=== PATIENT | male | born 1970 | race Caucasian/White ===

== ENCOUNTER 2018-08-22 15:35 | Emergency (ER) | payer OTHER ==
[2018-08-22 16:25] LABS: BASOPHILS % (AUTO) 1.3 % (0.0-5.0); EOSINOPHILS % (AUTO) 3.4 % (0.0-8.0); HEMATOCRIT 36.3 % (42-54); LYMPHOCYTES % (AUTO) 22.8 % (21.0-51.0); MEAN CORPUSCULAR HEMOGLOBIN 33.5 pg (27.0-33.0); MEAN CORPUSCULAR HGB CONC 34.6 g/dL (32.0-36.0); MONOCYTES % (AUTO) 6.6 % (3.0-13.0); NEUTROPHILS % (AUTO) 65.9 % (40.0-77.0); NUCLEATED RED BLOOD CELLS 0.1 % (0.0-0.19); PLATELET COUNT (AUTO) 278 K/uL (130-400); RED BLOOD CELL COUNT(AUTO) 3.75 MIL/uL (4.50-6.20); RED CELL DISTRIBUTION WIDTH 15.4 % (11.0-15.5); WHITE BLOOD COUNT (AUTO) 7.6 K/uL (4.8-10.8)
[2018-08-22] MEDS ORDERED: DIAZEPAM 5 MG TABLET ONE (16:34)
[2018-08-22 16:42] LABS: ALANINE AMINOTRANSFERASE 147 U/L (12-78); ALBUMIN 3.7 g/dL (3.5-5.0); ALCOHOL, BLOOD < 3 mg/dL (0-10); ASPARTATE AMINOTRANSFERASE 220 U/L (10-37); BILIRUBIN,DIRECT 0.4 mg/dL (0.0-0.3); BILIRUBIN,TOTAL 1.1 mg/dL (0.2-1.0); CARBON DIOXIDE 31 mmol/L (21-32); CHLORIDE 95 mmol/L (101-111); CREATINE KINASE, TOTAL 117 U/L (21-232); GLOMERULAR FILTR. RATE CALC 84 mL/min (>60); GLUCOSE,RANDOM 94 mg/dL (70-105); SODIUM SERUM 137 mmol/L (136-145); TOTAL PROTEIN, SERUM 6.5 g/dL (6.0-8.3); UREA NITROGEN, BLOOD 10 mg/dL (7-18)
[2018-08-22 16:53] LABS: POTASSIUM 2.2 mmol/L (3.5-5.1)
[2018-08-22 17:15] LABS: AMPHET/METH SCREEN,URINE NEGATIVE (NEGATIVE); BARBITURATE SCREEN, URINE NEGATIVE (NEGATIVE); BENZODIAZEPINES SCREEN,URINE POSITIVE (NEGATIVE); CANNABINOID SCREEN,URINE NEGATIVE (NEGATIVE); COCAINE SCREEN,URINE NEGATIVE (NEGATIVE); OPIATE SCREEN,URINE NEGATIVE (NEGATIVE); PHENCYCLIDINE SCREEN,URINE NEGATIVE (NEGATIVE)
[2018-08-22] MEDS ORDERED: MAGNESIUM 2GM PREMIX 50ML 50 ML IV ONE (17:21)
== END 2018-08-22 19:11 | disposition left against medical advice (07) ==
LOC: EDH 15:35
DX: R53.1 Weakness (principal); E87.6 Hypokalemia; R94.31 Abnormal electrocardiogram [ECG] [EKG]; Z72.0 Tobacco use
CPT/HCPCS: 36415; 80048; 80076; 80305; 82550; 83735; 85025; 93005; 96365; 99284; G0480; J3475

== ENCOUNTER 2018-11-07 16:49 | Emergency (ER) | payer OTHER ==
[2018-11-07] MEDS ORDERED: DIAZEPAM 5 MG TABLET ONE (17:15)
== END 2018-11-07 17:20 | disposition home or self-care (01) ==
LOC: EDH 16:49
DX: F41.9 Anxiety disorder, unspecified (principal); F43.10 Post-traumatic stress disorder, unspecified; Z98.890 Other specified postprocedural states; Z72.0 Tobacco use

== ENCOUNTER 2020-07-25 13:47 | Emergency (ER) | payer OTHER ==
[2020-07-25 14:31] LABS: BASOPHILS % (AUTO) 0.3 % (0.0-5.0); EOSINOPHILS % (AUTO) 0.8 % (0.0-8.0); HEMATOCRIT 24.1 % (42-54); LYMPHOCYTES % (AUTO) 14.8 % (21.0-51.0); MEAN CORPUSCULAR HEMOGLOBIN 36.7 pg (27.0-33.0); MEAN CORPUSCULAR HGB CONC 36.1 g/dL (32.0-36.0); MEAN CORPUSCULAR VOLUME 101.7 fL (79-99); NEUTROPHILS % (AUTO) 65.1 % (40.0-77.0); NUCLEATED RED BLOOD CELLS 0.1 % (0.0-0.19); PLATELET COUNT (AUTO) 116 K/uL (130-400); RED BLOOD CELL COUNT(AUTO) 2.37 MIL/uL (4.50-6.20); RED CELL DISTRIBUTION WIDTH 16.4 % (11.0-15.5); WHITE BLOOD COUNT (AUTO) 29.5 K/uL (4.8-10.8)
[2020-07-25 14:33] LABS: APPEARANCE,URINE CLEAR (CLEAR); BILIRUBIN,URINE MODERATE (NEGATIVE); COLOR,URINE YELLOW (YELLOW); GLUCOSE, URINE (UA) NEGATIVE (NEGATIVE); KETONES,URINE NEGATIVE (NEGATIVE); LEUKOCYTE ESTERASE ,URINE NEGATIVE (NEGATIVE); NITRATE,URINE NEGATIVE (NEGATIVE); OCCULT BLOOD,URINE NEGATIVE (NEGATIVE); PROTEIN,URINE NEGATIVE (NEGATIVE)
[2020-07-25 14:43] LABS: CREATININE 1.2 mg/dL (0.5-1.5); POTASSIUM 4.1 mmol/L (3.5-5.1)
[2020-07-25 14:46] LABS: BILIRUBIN,TOTAL 9.8 mg/dL (0.2-1.0); TOTAL PROTEIN, SERUM 4.9 g/dL (6.0-8.3)
[2020-07-25] MEDS ORDERED: DICYCLOMINE HCL 10 MG/ML 2ML AMP IM ONE (14:55)
[2020-07-25] MEDS ORDERED: SODIUM CHLORIDE 0.9% 50 ML IV ONE ×2 (14:56→15:56)
[2020-07-25] MEDS ORDERED: IOHEXOL 350 MG/ML 100ML INFUS..BTL IV ONE (15:09)
[2020-07-25 15:13] LABS: BACTERIA,URINE Few /HPF (None Seen); MUCUS,URINE Few LPF (None Seen); SQUAMOUS EPITHELIAL CELL,UR Few /HPF (0-2)
[2020-07-25] MEDS ORDERED: CEFTRIAXONE SODIUM 1 GM ONE (15:55)
[2020-07-25] MEDS ORDERED: SODIUM CHLORIDE 0.9% 1000ML 1,000 ML IV SCH (16:45)
[2020-07-25] MEDS ORDERED: HYDROMORPHONE HCL 0.5 MG/0.5 ML ML IVP PRN (16:45)
[2020-07-25] MEDS ORDERED: FOLIC ACID 5 MG/ML 10 ML VIAL IV SCH (16:45)
[2020-07-25] MEDS ORDERED: THIAMINE HCL 100 MG/ML 2ML VIAL IVP SCH (16:45)
[2020-07-25 16:55] LABS: INR 1.56 (0.85-1.15); PROTHROMBIN TIME 16.3 SEC (9.6-11.6)
[2020-07-25 16:56] LABS: PARTIAL THROMBOPLASTIN TIME 37.8 SEC (26.3-35.5)
[2020-07-25 18:33] LABS: AMPHET/METH SCREEN,URINE NEGATIVE (NEGATIVE); BARBITURATE SCREEN, URINE NEGATIVE (NEGATIVE); BENZODIAZEPINES SCREEN,URINE NEGATIVE (NEGATIVE); CANNABINOID SCREEN,URINE NEGATIVE (NEGATIVE); COCAINE SCREEN,URINE NEGATIVE (NEGATIVE); OPIATE SCREEN,URINE NEGATIVE (NEGATIVE); PHENCYCLIDINE SCREEN,URINE NEGATIVE (NEGATIVE)
[2020-07-25] MEDS ORDERED: ZOSYN 3.375GM+NS 50ML 50 ML IV SCH (20:00)
[2020-07-25] MEDS ORDERED: LACTULOSE 20 GM/30 ML UDCUP PO SCH (20:00)
[2020-07-26] MEDS ORDERED: THIAMINE HCL 100 MG/ML 2ML VIAL IVP SCH (09:00)
[2020-07-26] MEDS ORDERED: FOLIC ACID 5 MG/ML 10 ML VIAL IV SCH (09:00)
== END 2020-07-25 17:28 | disposition left against medical advice (07) ==
LOC: EDH 13:47
DX: R60.1 Generalized edema (principal); K52.9 Noninfective gastroenteritis and colitis, unspecified; D72.829 Elevated white blood cell count, unspecified; E87.1 Hypo-osmolality and hyponatremia; Z90.49 Acquired absence of other specified parts of digestive tract; Z72.0 Tobacco use
CPT/HCPCS: 36415; 71045; 74177; 80053; 80305; 81001; 82140; 82150; 82550; 83605; 83690; 84145; 84484; 85025; 85384; 85610; 85730; 86140; 87040 ×2; 93005; 96365; 96367; 96372; 99291; J0500; J0696; Q9967

== ENCOUNTER 2020-07-28 10:06 | Inpatient (IN) | payer OTHER ==
[~2020-07-28] VITALS: Ht 185.4 cm; Wt 73.9 kg
[2020-07-28 10:27] LABS: BASOPHILS % (AUTO) 0.3 % (0.0-5.0); EOSINOPHILS % (AUTO) 0.4 % (0.0-8.0); HEMATOCRIT 21.8 % (42-54); LYMPHOCYTES % (AUTO) 12.4 % (21.0-51.0); MEAN CORPUSCULAR HEMOGLOBIN 36.8 pg (27.0-33.0); MEAN CORPUSCULAR HGB CONC 35.8 g/dL (32.0-36.0); MEAN CORPUSCULAR VOLUME 102.8 fL (79-99); MONOCYTES % (AUTO) 10.8 % (3.0-13.0); NEUTROPHILS % (AUTO) 72.7 % (40.0-77.0); PLATELET COUNT (AUTO) 213 K/uL (130-400); RED BLOOD CELL COUNT(AUTO) 2.12 MIL/uL (4.50-6.20); WHITE BLOOD COUNT (AUTO) 27.8 K/uL (4.8-10.8)
[2020-07-28 10:28] LABS: NUCLEATED RED BLOOD CELLS 0.1 % (0.0-0.19)
[2020-07-28 10:37] LABS: CREATININE 1.2 mg/dL (0.5-1.5); POTASSIUM 3.8 mmol/L (3.5-5.1)
[2020-07-28 10:42] LABS: ALBUMIN 1.9 g/dL (3.5-5.0); BILIRUBIN,TOTAL 8.4 mg/dL (0.2-1.0); INR 1.6 (0.85-1.15); PROTHROMBIN TIME 16.7 SEC (9.6-11.6); TOTAL PROTEIN, SERUM 4.6 g/dL (6.0-8.3)
[2020-07-28 10:43] LABS: PARTIAL THROMBOPLASTIN TIME 40.4 SEC (26.3-35.5)
[2020-07-28] MEDS ORDERED: DICYCLOMINE 20MG (10MG/ML) AMP IM ONE (12:04)
[2020-07-28] MEDS: CEFTRIAXONE 1G VIAL IVP SCH (16:15)
[2020-07-28] MEDS ORDERED: HYDRALAZINE 20MG/ML VIAL IV PRN (16:30)
[2020-07-28] MEDS ORDERED: ALBUTEROL 0.083% 2.5 MG/3 ML INH IH PRN (16:30)
[2020-07-28] MEDS ORDERED: ONDANSETRON 4MG INJ IVP PRN (16:30)
[2020-07-28] MEDS: LACTULOSE 20 GM/30 ML UDCUP PO SCH (17:00)
[2020-07-28 17:12] LABS: BILIRUBIN,DIRECT 5.9 mg/dL (0.0-0.3); BILIRUBIN,TOTAL 9.1 mg/dL (0.2-1.0)
[2020-07-28 17:13] LABS: ALCOHOL, BLOOD < 3 mg/dL (0-10)
[2020-07-28] MEDS ORDERED: 0.9%NACL 50ML 50 ML IV ONE (17:15)
[2020-07-28] MEDS ORDERED: CEFTRIAXONE 1G VIAL ONE (17:15)
[2020-07-28 17:20] LABS: AMMONIA 14 umol/L (11-32)
[2020-07-28] MEDS ORDERED: PHARMACY COMMUNICATION MISC PRN (17:45)
[2020-07-28] MEDS ORDERED: THIAMINE HCL 100 MG, FOLIC ACID 1 MG, M.V.I. IV [ADULT] 10 ML in 0.9%NACL 1000ML 1,000 ML IV ONE (17:45)
[2020-07-28] MEDS: FAMOTIDINE 20MG VIAL IV SCH (21:00)
[2020-07-28] MEDS ORDERED: LACTULOSE 20 GM/30 ML UDCUP ONE (22:53)
[2020-07-28] MEDS ORDERED: FAMOTIDINE 20MG VIAL IV ONE (22:54)
[2020-07-28 23:15] VITALS: BP 135/77
[2020-07-29] VITALS (12 sets, daily range): BP systolic 94–150; BP diastolic 50–79
[2020-07-29] MEDS: LACTULOSE 20 GM/30 ML UDCUP PO SCH ×4 (00:19→19:24)
[2020-07-29] MEDS ORDERED: LOSA50TA64 PO (01:10)
[2020-07-29] MEDS ORDERED: ALBUTERAL INHALER PO (01:10)
[2020-07-29] MEDS ORDERED: FURO40TA7 PO (01:10)
[2020-07-29 05:16] LABS: BASOPHILS % (AUTO) 0.3 % (0.0-5.0); EOSINOPHILS % (AUTO) 0.9 % (0.0-8.0); HEMATOCRIT 22.1 % (42-54); LYMPHOCYTES % (AUTO) 13.8 % (21.0-51.0); MEAN CORPUSCULAR HEMOGLOBIN 35.8 pg (27.0-33.0); MEAN CORPUSCULAR HGB CONC 34.8 g/dL (32.0-36.0); MEAN CORPUSCULAR VOLUME 102.8 fL (79-99); MONOCYTES % (AUTO) 13.1 % (3.0-13.0); NEUTROPHILS % (AUTO) 68.7 % (40.0-77.0); NUCLEATED RED BLOOD CELLS 0.2 % (0.0-0.19); PLATELET COUNT (AUTO) 125 K/uL (130-400); RED BLOOD CELL COUNT(AUTO) 2.15 MIL/uL (4.50-6.20); RED CELL DISTRIBUTION WIDTH 15.9 % (11.0-15.5); WHITE BLOOD COUNT (AUTO) 29.4 K/uL (4.8-10.8)
[2020-07-29 05:35] LABS: ALBUMIN 1.8 g/dL (3.5-5.0); BILIRUBIN,TOTAL 9.3 mg/dL (0.2-1.0); CREATININE 0.8 mg/dL (0.5-1.5); POTASSIUM 4.2 mmol/L (3.5-5.1); TOTAL PROTEIN, SERUM 4.5 g/dL (6.0-8.3)
[2020-07-29] MEDS: FUROSEMIDE 40 MG TABLET PO SCH (12:36)
[2020-07-29] MEDS: LOSARTAN 50 MG TABLET PO SCH (12:36)
[2020-07-29] MEDS: CEFTRIAXONE 1G VIAL IVP SCH (12:54)
[2020-07-29] MEDS: ALBUMIN (HUMAN) 25% 200 ML IV SCH ×2 (12:56→13:48)
[2020-07-29] MEDS: FAMOTIDINE 20MG VIAL IV SCH ×2 (12:56→20:20)
[2020-07-29 14:06] LABS: BF LYMPHOCYTE 8 %; BF MESOTHELIAL 17 %; BF MONOCYTE 12 %
[2020-07-29 14:08] LABS: APPEARANCE BODY FLUID CLEAR (CLEAR); COLOR,BODY FLUID YELLOW (LT YELLOW); SPECIMENTYPE,BODY FLUID ASCITES; TOTAL VOLUME,BODY FLUID 9000 mL
[2020-07-29 14:09] LABS: BODY FLUID RBC 23 /cu. mm.; BODY FLUID WBC 83 /cu. mm.
[2020-07-29 21:28] LABS: INR 1.64 (0.85-1.15); PROTHROMBIN TIME 17.1 SEC (9.6-11.6)
[2020-07-29 21:29] LABS: PARTIAL THROMBOPLASTIN TIME 51.2 SEC (26.3-35.5)
[2020-07-30 01:28] LABS: AMPHET/METH SCREEN,URINE NEGATIVE (NEGATIVE); BARBITURATE SCREEN, URINE NEGATIVE (NEGATIVE); BENZODIAZEPINES SCREEN,URINE NEGATIVE (NEGATIVE); CANNABINOID SCREEN,URINE NEGATIVE (NEGATIVE); COCAINE SCREEN,URINE NEGATIVE (NEGATIVE); OPIATE SCREEN,URINE NEGATIVE (NEGATIVE); PHENCYCLIDINE SCREEN,URINE NEGATIVE (NEGATIVE); SODIUM,URINE RANDOM < 13 mmol/l (40-220)
[2020-07-30 05:06] VITALS: BP 114/50
[2020-07-30 06:13] LABS: BASOPHILS % (AUTO) 0.2 % (0.0-5.0); EOSINOPHILS % (AUTO) 1.2 % (0.0-8.0); LYMPHOCYTES % (AUTO) 15.9 % (21.0-51.0); MEAN CORPUSCULAR HEMOGLOBIN 36.7 pg (27.0-33.0); MEAN CORPUSCULAR HGB CONC 36.1 g/dL (32.0-36.0); MEAN CORPUSCULAR VOLUME 101.6 fL (79-99); MONOCYTES % (AUTO) 11.6 % (3.0-13.0); NUCLEATED RED BLOOD CELLS 0.1 % (0.0-0.19); PLATELET COUNT (AUTO) 171 K/uL (130-400); RED BLOOD CELL COUNT(AUTO) 1.88 MIL/uL (4.50-6.20); RED CELL DISTRIBUTION WIDTH 15.9 % (11.0-15.5); WHITE BLOOD COUNT (AUTO) 28.9 K/uL (4.8-10.8)
[2020-07-30 06:15] LABS: INR 1.54 (0.85-1.15); PROTHROMBIN TIME 16.1 SEC (9.6-11.6)
[2020-07-30 06:16] LABS: HEMATOCRIT 19.1 % (42-54)
[2020-07-30 06:22] LABS: ALBUMIN 2.3 g/dL (3.5-5.0); BILIRUBIN,TOTAL 6.6 mg/dL (0.2-1.0); TOTAL PROTEIN, SERUM 4.5 g/dL (6.0-8.3)
[2020-07-30] MEDS ORDERED: IOHEXOL-350 50ML VIAL IV ONE (06:42)
[2020-07-30] MEDS ORDERED: POTASSIUM CHLORIDE 20MEQ/100ML 100 ML IV PRN ×2 (07:45→19:15)
[2020-07-30] MEDS ORDERED: LIDOCAINE HCL-MPF 1% 2ML VIAL IV PRN ×2 (07:45→19:15)
[2020-07-30] MEDS: LACTULOSE 20 GM/30 ML UDCUP PO SCH ×3 (08:12→23:09)
[2020-07-30] MEDS: FAMOTIDINE 20MG VIAL IV SCH ×2 (08:29→20:18)
[2020-07-30] MEDS: FUROSEMIDE 40 MG TABLET PO SCH (09:00)
[2020-07-30 10:29] VITALS: BP_SYST 120; BP_SYST 151; BP_DIAS 64; BP_DIAS 87
[2020-07-30] MEDS: LOSARTAN 50 MG TABLET PO SCH (12:14)
[2020-07-30 12:52] VITALS: BP 101/62
[2020-07-30] MEDS ORDERED: IOHEXOL 350 MG/ML 100ML INFUS..BTL IV ONE (17:33)
[2020-07-30] MEDS: CEFTRIAXONE 1G VIAL IVP SCH (17:37)
[2020-07-30 17:47] VITALS: BP 115/89
[2020-07-30 20:00] VITALS: BP 118/67
[2020-07-30] MEDS: KCL 20 MEQ ERTAB PO PRN (20:18)
[2020-07-30] MEDS: POTASSIUM CHLORIDE 10% ELIXIR 20 MEQ/15 ML UDCUP PO PRN (23:08)
[2020-07-31] VITALS: BP_SYST 116; BP_SYST 134; BP_DIAS 58; BP_DIAS 71
[2020-07-31] MEDS: POTASSIUM CHLORIDE 10% ELIXIR 20 MEQ/15 ML UDCUP PO PRN (00:43)
[2020-07-31] MEDS: KCL 20 MEQ ERTAB PO PRN ×3 (00:49→08:59)
[2020-07-31 05:51] LABS: BASOPHILS % (AUTO) 0.4 % (0.0-5.0); HEMATOCRIT 22.7 % (42-54); LYMPHOCYTES % (AUTO) 15.3 % (21.0-51.0); MEAN CORPUSCULAR HGB CONC 36.1 g/dL (32.0-36.0); MEAN CORPUSCULAR VOLUME 99.6 fL (79-99); MONOCYTES % (AUTO) 11.7 % (3.0-13.0); NEUTROPHILS % (AUTO) 67.4 % (40.0-77.0); NUCLEATED RED BLOOD CELLS 0.2 % (0.0-0.19); PLATELET COUNT (AUTO) 181 K/uL (130-400); RED BLOOD CELL COUNT(AUTO) 2.28 MIL/uL (4.50-6.20)
[2020-07-31 06:04] LABS: INR 1.61 (0.85-1.15); PROTHROMBIN TIME 16.8 SEC (9.6-11.6)
[2020-07-31 06:12] LABS: ALBUMIN 2.3 g/dL (3.5-5.0); BILIRUBIN,TOTAL 7.2 mg/dL (0.2-1.0); CREATININE 0.9 mg/dL (0.5-1.5); POTASSIUM 3.4 mmol/L (3.5-5.1); TOTAL PROTEIN, SERUM 4.5 g/dL (6.0-8.3)
[2020-07-31] MEDS: FUROSEMIDE 40 MG TABLET PO SCH (08:57)
[2020-07-31] MEDS: FAMOTIDINE 20MG VIAL IV SCH ×2 (08:57→20:12)
[2020-07-31 08:58] VITALS: BP 109/60
[2020-07-31] MEDS: LOSARTAN 50 MG TABLET PO SCH (09:00)
[2020-07-31] MEDS: LACTULOSE 20 GM/30 ML UDCUP PO SCH ×2 (09:00→20:12)
[2020-07-31 13:00] VITALS: BP 112/61
[2020-07-31] MEDS ORDERED: MAG/ALUM/SIMETH 30 ML UDCUP ONE (15:19)
[2020-07-31] MEDS: CEFTRIAXONE 1G VIAL IVP SCH (15:29)
[2020-07-31] MEDS: MAG/ALUM/SIMETH 30 ML UDCUP PO PRN (15:29)
[2020-07-31 17:36] VITALS: BP 105/58
[2020-07-31 19:47] VITALS: BP 145/72
[2020-07-31 23:52] VITALS: BP 109/63
[2020-08-01 05:31] LABS: HEMATOCRIT 22.8 % (42-54); MEAN CORPUSCULAR HEMOGLOBIN 35.8 pg (27.0-33.0); MEAN CORPUSCULAR VOLUME 99.6 fL (79-99); NUCLEATED RED BLOOD CELLS 0.1 % (0.0-0.19); PLATELET COUNT (AUTO) 189 K/uL (130-400); RED BLOOD CELL COUNT(AUTO) 2.29 MIL/uL (4.50-6.20); RED CELL DISTRIBUTION WIDTH 18.3 % (11.0-15.5); WHITE BLOOD COUNT (AUTO) 26.2 K/uL (4.8-10.8)
[2020-08-01 05:38] LABS: INR 1.63 (0.85-1.15)
[2020-08-01 05:40] LABS: PARTIAL THROMBOPLASTIN TIME 41.1 SEC (26.3-35.5); POTASSIUM 3.8 mmol/L (3.5-5.1)
[2020-08-01 06:31] VITALS: BP 120/63
[2020-08-01] MEDS ORDERED: IBUPROFEN 600 MG TABLET ONE (06:40)
[2020-08-01] MEDS ORDERED: IBUPROFEN 600 MG TABLET PO PRN (06:45)
[2020-08-01 07:39] LABS: BAND NEUTROPHILS % (MANUAL) 1 % (0-2); EOSINOPHILS % (MANUAL) 1 % (1-6); LYMPHOCYTES % (MANUAL) 14 % (22-44); MAN.DIFF COMMENT-IMPRESSION MANUAL DIFFERENTIAL; MONOCYTES % (MANUAL) 12 % (2-9); PLATELET MORPHOLOGY COMMENT ADEQUATE; SEGMENTED NEUTROPHILS % 72 % (40-70)
[2020-08-01] MEDS: FAMOTIDINE 20MG VIAL IV SCH ×2 (08:51→20:35)
[2020-08-01] MEDS: FUROSEMIDE 40 MG TABLET PO SCH (08:52)
[2020-08-01] MEDS: LOSARTAN 50 MG TABLET PO SCH (09:00)
[2020-08-01] MEDS: LACTULOSE 20 GM/30 ML UDCUP PO SCH ×2 (09:00→20:35)
[2020-08-01 09:47] LABS: APPEARANCE,URINE Clear (CLEAR); BILIRUBIN,URINE Moderate (NEGATIVE); COLOR,URINE Dark Yellow (YELLOW); GLUCOSE, URINE (UA) Negative (NEGATIVE); KETONES,URINE Negative (NEGATIVE); LEUKOCYTE ESTERASE ,URINE Negative (NEGATIVE); NITRATE,URINE Negative (NEGATIVE); OCCULT BLOOD,URINE Negative (NEGATIVE); PROTEIN,URINE Negative (NEGATIVE)
[2020-08-01 09:55] LABS: BACTERIA,URINE None Seen /HPF (None Seen); MUCUS,URINE Few LPF (None Seen); RBC,URINE None Seen /HPF (0-1); SQUAMOUS EPITHELIAL CELL,UR Few /HPF (0-2); WBC,URINE 0-1 /HPF (0-1)
[2020-08-01 09:57] VITALS: BP 120/63
[2020-08-01 12:41] VITALS: BP 107/62
[2020-08-01] MEDS ORDERED: SPIR50TA5 PO (16:50)
[2020-08-01] MEDS: METRONIDAZOLE 500MG/100ML BAG 100 ML IVPB SCH ×2 (17:14→20:35)
[2020-08-01] MEDS: CEFTRIAXONE 1G VIAL IVP SCH (17:14)
[2020-08-01 17:34] VITALS: BP 121/75
[2020-08-01 20:39] VITALS: BP 116/59
[2020-08-01] MEDS: MAG/ALUM/SIMETH 30 ML UDCUP PO PRN (21:42)
[2020-08-02] VITALS (17 sets, daily range): BP systolic 86–110; BP diastolic 49–63
[2020-08-02] MEDS: METRONIDAZOLE 500MG/100ML BAG 100 ML IVPB SCH ×3 (04:28→22:11)
[2020-08-02 05:43] LABS: BASOPHILS % (AUTO) 0.5 % (0.0-5.0); EOSINOPHILS % (AUTO) 2.4 % (0.0-8.0); HEMATOCRIT 23.8 % (42-54); LYMPHOCYTES % (AUTO) 11.8 % (21.0-51.0); MEAN CORPUSCULAR HEMOGLOBIN 35.1 pg (27.0-33.0); MEAN CORPUSCULAR HGB CONC 35.3 g/dL (32.0-36.0); MEAN CORPUSCULAR VOLUME 99.6 fL (79-99); NEUTROPHILS % (AUTO) 68.1 % (40.0-77.0); NUCLEATED RED BLOOD CELLS 0.1 % (0.0-0.19); PLATELET COUNT (AUTO) 190 K/uL (130-400); RED BLOOD CELL COUNT(AUTO) 2.39 MIL/uL (4.50-6.20); WHITE BLOOD COUNT (AUTO) 25.5 K/uL (4.8-10.8)
[2020-08-02 06:02] LABS: BILIRUBIN,TOTAL 5.5 mg/dL (0.2-1.0); POTASSIUM 3.6 mmol/L (3.5-5.1); TOTAL PROTEIN, SERUM 4.4 g/dL (6.0-8.3)
[2020-08-02] MEDS ORDERED: LIDOCAINE HCL 1% 20 ML VIAL ONE (07:11)
[2020-08-02] MEDS ORDERED: PROPOFOL 10 MG/ML 20ML VIAL IV ONE ×2 (07:11→07:34)
[2020-08-02] MEDS ORDERED: MIDAZOLAM HCL 1 MG/ML 2ML VIAL ONE (07:11)
[2020-08-02] MEDS ORDERED: PHENYLEPHRINE HCL 10 MG/ML 1ML VIAL IV ONE (07:36)
[2020-08-02] MEDS: LOSARTAN 50 MG TABLET PO SCH (09:00)
[2020-08-02] MEDS: FUROSEMIDE 40 MG TABLET PO SCH (09:00)
[2020-08-02] MEDS: FAMOTIDINE 20MG VIAL IV SCH ×2 (10:01→20:18)
[2020-08-02] MEDS ORDERED: TRAMADOL HCL 50 MG TABLET PO PRN (14:00)
[2020-08-02] MEDS: THIAMINE HCL 100 MG TABLET PO SCH (14:21)
[2020-08-02] MEDS: FOLIC ACID 1 MG TABLET PO SCH (14:21)
[2020-08-02] MEDS: LACTULOSE 20 GM/30 ML UDCUP PO SCH ×3 (14:21→21:00)
[2020-08-02] MEDS: CEFTRIAXONE 1G VIAL IVP SCH (17:11)
[2020-08-03] VITALS (7 sets, daily range): BP systolic 89–115; BP diastolic 43–65
[2020-08-03 05:08] LABS: BASOPHILS % (AUTO) 0.5 % (0.0-5.0); EOSINOPHILS % (AUTO) 2.5 % (0.0-8.0); LYMPHOCYTES % (AUTO) 15.8 % (21.0-51.0); MEAN CORPUSCULAR HEMOGLOBIN 35.8 pg (27.0-33.0); MEAN CORPUSCULAR HGB CONC 36.2 g/dL (32.0-36.0); MEAN CORPUSCULAR VOLUME 99.1 fL (79-99); MONOCYTES % (AUTO) 15.6 % (3.0-13.0); NEUTROPHILS % (AUTO) 61.1 % (40.0-77.0); NUCLEATED RED BLOOD CELLS 0.1 % (0.0-0.19); PLATELET COUNT (AUTO) 187 K/uL (130-400); RED BLOOD CELL COUNT(AUTO) 2.12 MIL/uL (4.50-6.20); RED CELL DISTRIBUTION WIDTH 17.8 % (11.0-15.5)
[2020-08-03 05:31] LABS: ALBUMIN 1.9 g/dL (3.5-5.0); BILIRUBIN,TOTAL 5.7 mg/dL (0.2-1.0); POTASSIUM 3.2 mmol/L (3.5-5.1); TOTAL PROTEIN, SERUM 4.2 g/dL (6.0-8.3)
[2020-08-03] MEDS: METRONIDAZOLE 500MG/100ML BAG 100 ML IVPB SCH ×2 (05:37→13:10)
[2020-08-03] MEDS ORDERED: ALBUMIN (HUMAN) 25% 200 ML IV SCH (08:45)
[2020-08-03] MEDS: LOSARTAN 50 MG TABLET PO SCH ×2 (09:00→09:03)
[2020-08-03] MEDS: LACTULOSE 20 GM/30 ML UDCUP PO SCH (09:00)
[2020-08-03] MEDS: FAMOTIDINE 20MG VIAL IV SCH (09:03)
[2020-08-03] MEDS: FUROSEMIDE 40 MG TABLET PO SCH (09:03)
[2020-08-03] MEDS: KCL 20 MEQ ERTAB PO PRN (09:06)
[2020-08-03 09:42] LABS: HEMATOCRIT 22.9 % (42-54)
[2020-08-03] MEDS: FOLIC ACID 1 MG TABLET PO SCH (13:10)
[2020-08-03] MEDS: THIAMINE HCL 100 MG TABLET PO SCH (13:10)
[2020-08-03] MEDS: CEFTRIAXONE 1G VIAL IVP SCH (16:15)
[2020-08-03] MEDS ORDERED: LACT PO (17:11)
[2020-08-03] MEDS ORDERED: FURO40TA7 PO (17:11)
[2020-09-22] MEDS ORDERED: FERS325 PO (22:12)
[2020-09-22] MEDS ORDERED: FOLI1 PO (22:12)
[2020-09-22] MEDS ORDERED: VITAMIN B12 PO (22:12)
[2020-10-25] MEDS ORDERED: bactrim PO (17:42)
== END 2020-08-03 17:35 | disposition home or self-care (01) | DRG 433 ==
LOC: EDH 10:06 → EDHIP 16:09 → 3AH 22:09
PROVIDERS: ADMIT Internal Medicine; ATTEND Internal Medicine
PROC: 30233K1 Transfusion of Nonautologous Frozen Plasma into Peripheral Vein, Percutaneous Approach (ICD-10-PCS; principal; 2020-07-29)
PROC: 0W9G3ZZ Drainage of Peritoneal Cavity, Percutaneous Approach (ICD-10-PCS; 2020-07-29)
PROC: 30233N1 Transfusion of Nonautologous Red Blood Cells into Peripheral Vein, Percutaneous Approach (ICD-10-PCS; 2020-07-30)
PROC: 0DJ08ZZ Inspection of Upper Intestinal Tract, Via Natural or Artificial Opening Endoscopic (ICD-10-PCS; 2020-08-02)
PROC: 0W9G3ZZ Drainage of Peritoneal Cavity, Percutaneous Approach (ICD-10-PCS; 2020-08-03)
DX: K70.31 Alcoholic cirrhosis of liver with ascites (principal); E87.1 Hypo-osmolality and hyponatremia; K82.1 Hydrops of gallbladder; E44.0 Moderate protein-calorie malnutrition; K80.11 Calculus of gallbladder with chronic cholecystitis with obstruction; K70.40 Alcoholic hepatic failure without coma; I10 Essential (primary) hypertension; F10.10 Alcohol abuse, uncomplicated; D72.829 Elevated white blood cell count, unspecified; K44.9 Diaphragmatic hernia without obstruction or gangrene; K83.8 Other specified diseases of biliary tract; E87.6 Hypokalemia; D64.9 Anemia, unspecified; D73.5 Infarction of spleen; R16.1 Splenomegaly, not elsewhere classified; J45.909 Unspecified asthma, uncomplicated; K20.90 Esophagitis, unspecified without bleeding; K76.0 Fatty (change of) liver, not elsewhere classified; Z68.21 Body mass index [BMI] 21.0-21.9, adult; Z72.0 Tobacco use; Z85.72 Personal history of non-Hodgkin lymphomas
CPT/HCPCS: 36415; 36430; 43259; 49083; 71045; 74018; 74170; 74181; 76705; 80048; 80053; 80305; 81001; 82105; 82140; 82247; 82248; 82378; 83615; 83935; 84145; 84157; 84300; 84484; 85014; 85018; 85025; 85384; 85610; 85730; 86140; 86156; 86316; 86850; 86870; 86900; 86901; 86922; 86927; 87040; 87071; 87088; 87205; 89051; 93005; 94664; A4606; C1729; G0378; J0500; J0696; J2250; J2370; J2704; J3411; J3480; J3490; J7030; P9016; P9017; P9046; Q9967

== ENCOUNTER → 2020-08-17 | Outpatient (CLI) | payer OTHER ==
[~2020-08-17] MED LIST: ALBUMIN (HUMAN) 25% 200 ML IV SCH; ALBUTERAL INHALER PO; FURO40TA7 PO; LACT PO; LOSA50TA64 PO; SPIR50TA5 PO
[2020-08-17 08:56] LABS: INR 1.55 (0.85-1.15); PROTHROMBIN TIME 16.2 SEC (9.6-11.6)
[2020-08-17 13:50] LABS: BASOPHILS % (AUTO) 0.5 % (0.0-5.0); EOSINOPHILS % (AUTO) 2.3 % (0.0-8.0); HEMATOCRIT 26.5 % (42-54); LYMPHOCYTES % (AUTO) 17.1 % (21.0-51.0); MEAN CORPUSCULAR HGB CONC 34.3 g/dL (32.0-36.0); MEAN CORPUSCULAR VOLUME 101.9 fL (79-99); MONOCYTES % (AUTO) 13.2 % (3.0-13.0); NEUTROPHILS % (AUTO) 64.8 % (40.0-77.0); PLATELET COUNT (AUTO) 101 K/uL (130-400); RED CELL DISTRIBUTION WIDTH 16.3 % (11.0-15.5); WHITE BLOOD COUNT (AUTO) 20.8 K/uL (4.8-10.8)
[2020-08-17 13:59] LABS: ALBUMIN 2.6 g/dL (3.5-5.0); BILIRUBIN,TOTAL 5.2 mg/dL (0.2-1.0); POTASSIUM 3.4 mmol/L (3.5-5.1); TOTAL PROTEIN, SERUM 5.3 g/dL (6.0-8.3)
[2020-08-17 17:05] LABS: APPEARANCE BODY FLUID SLIGHTLY CLOUDY (CLEAR); BODY FLUID RBC 7 /cu. mm.; BODY FLUID WBC 22 /cu. mm.; COLOR,BODY FLUID YELLOW (LT YELLOW); SPECIMENTYPE,BODY FLUID ASCITES; TOTAL VOLUME,BODY FLUID 6000 mL
[2020-08-17 17:06] LABS: ALBUMIN,BODY FLUID < 0.6 g/dL
[2020-08-17 17:34] LABS: BF EOSINOPHIL 1 %; BF LYMPHOCYTE 37 %; BF MESOTHELIAL 43 %; BF MONOCYTE 2 %
== END | disposition home or self-care (01) ==
LOC: RAH 07:49
PROVIDERS: ATTEND Internal Medicine Gastroenterology
DX: K70.31 Alcoholic cirrhosis of liver with ascites (principal)
CPT/HCPCS: 36415; 49083; 80053; 82042; 84157; 85025; 85610; 87071; 87205; 89051; A4215; P9046; 96365

== ENCOUNTER → 2020-08-24 | Outpatient (CLI) | payer OTHER ==
[~2020-08-24] MED LIST changes: -ALBUMIN (HUMAN) 25% 200 ML IV SCH; +RIFA550T PO
== END | disposition home or self-care (01) ==
LOC: SHCH 11:30
PROVIDERS: ATTEND Internal Medicine
DX: I10 Essential (primary) hypertension (principal)
CPT/HCPCS: 93306; 93356

== ENCOUNTER 2020-08-26 08:06 | Inpatient (IN) | payer OTHER ==
[~2020-08-26] VITALS: Ht 185.4 cm; Wt 62.1 kg
[~2020-08-26 08:06] MED LIST changes: -RIFA550T PO
[2020-08-26] MEDS ORDERED: FAMOTIDINE 20MG VIAL IV ONE (08:31)
[2020-08-26] MEDS ORDERED: 0.9% NACL 500ML IV.SOLN 500 ML IV ONE (08:32)
[2020-08-26 08:44] LABS: BASOPHILS % (AUTO) 0.4 % (0.0-5.0); LYMPHOCYTES % (AUTO) 20.6 % (21.0-51.0); MEAN CORPUSCULAR HEMOGLOBIN 33.8 pg (27.0-33.0); MEAN CORPUSCULAR HGB CONC 34.6 g/dL (32.0-36.0); MEAN CORPUSCULAR VOLUME 97.7 fL (79-99); MONOCYTES % (AUTO) 15.8 % (3.0-13.0); NEUTROPHILS % (AUTO) 58.8 % (40.0-77.0); PLATELET COUNT (AUTO) 271 K/uL (130-400); RED BLOOD CELL COUNT(AUTO) 2.66 MIL/uL (4.50-6.20); RED CELL DISTRIBUTION WIDTH 15.4 % (11.0-15.5); WHITE BLOOD COUNT (AUTO) 19.9 K/uL (4.8-10.8)
[2020-08-26 08:54] LABS: ALBUMIN 2.8 g/dL (3.5-5.0); BILIRUBIN,TOTAL 4.5 mg/dL (0.2-1.0); CREATININE 1.1 mg/dL (0.5-1.5); POTASSIUM 3.3 mmol/L (3.5-5.1); TOTAL PROTEIN, SERUM 5.5 g/dL (6.0-8.3)
[2020-08-26] MEDS ORDERED: CEFTRIAXONE 1G VIAL ONE (10:57)
[2020-08-26] MEDS ORDERED: 0.9%NACL 50ML 50 ML IV ONE (10:57)
[2020-08-26] MEDS ORDERED: ALBUMIN (HUMAN) 25% 200 ML IV ONE (11:40)
[2020-08-26] MEDS ORDERED: LACTULOSE 20 GM/30 ML UDCUP PO PRN (12:00)
[2020-08-26] MEDS ORDERED: CEFTRIAXONE 1G VIAL IV SCH (12:00)
[2020-08-26] MEDS ORDERED: ONDANSETRON 4MG INJ IV PRN (12:00)
[2020-08-26] MEDS ORDERED: POTASSIUM CHLORIDE 10MEQ/100ML 100 ML IV PRN (12:30)
[2020-08-26] MEDS ORDERED: LIDOCAINE HCL-MPF 1% 2ML VIAL IV PRN (12:30)
[2020-08-26] MEDS ORDERED: POTASSIUM CHLORIDE 10% ELIXIR 20 MEQ/15 ML UDCUP PO PRN (12:30)
[2020-08-26 13:37] LABS: INR 1.6 (0.85-1.15); PROTHROMBIN TIME 16.7 SEC (9.6-11.6)
[2020-08-26] MEDS ORDERED: KCL 20 MEQ ERTAB PO ONE ×2 (14:10→17:37)
[2020-08-26 16:49] LABS: POTASSIUM 3.4 mmol/L (3.5-5.1)
[2020-08-26 16:53] LABS: ALBUMIN 3.1 g/dL (3.5-5.0); BILIRUBIN,TOTAL 3.8 mg/dL (0.2-1.0); TOTAL PROTEIN, SERUM 5.1 g/dL (6.0-8.3)
[2020-08-26 19:05] VITALS: BP 106/75
[2020-08-26] MEDS ORDERED: RIFA550T PO (19:36)
[2020-08-26] MEDS: FAMOTIDINE 20MG TAB PO SCH (19:40)
[2020-08-26 23:46] VITALS: BP 91/48
[2020-08-27 04:00] VITALS: BP 100/56
[2020-08-27 04:04] LABS: APPEARANCE,URINE Clear (CLEAR); BILIRUBIN,URINE Small (NEGATIVE); COLOR,URINE Dark Yellow (YELLOW); GLUCOSE, URINE (UA) Negative (NEGATIVE); KETONES,URINE Negative (NEGATIVE); LEUKOCYTE ESTERASE ,URINE Negative (NEGATIVE); NITRATE,URINE Negative (NEGATIVE); OCCULT BLOOD,URINE Negative (NEGATIVE); PROTEIN,URINE Trace mg/dL (NEGATIVE)
[2020-08-27 04:13] LABS: AMPHET/METH SCREEN,URINE NEGATIVE (NEGATIVE); BARBITURATE SCREEN, URINE NEGATIVE (NEGATIVE); BENZODIAZEPINES SCREEN,URINE NEGATIVE (NEGATIVE); CANNABINOID SCREEN,URINE NEGATIVE (NEGATIVE); COCAINE SCREEN,URINE NEGATIVE (NEGATIVE); OPIATE SCREEN,URINE NEGATIVE (NEGATIVE); PHENCYCLIDINE SCREEN,URINE NEGATIVE (NEGATIVE)
[2020-08-27 05:18] LABS: BASOPHILS % (AUTO) 0.9 % (0.0-5.0); EOSINOPHILS % (AUTO) 2.6 % (0.0-8.0); HEMATOCRIT 26.4 % (42-54); LYMPHOCYTES % (AUTO) 13.3 % (21.0-51.0); MEAN CORPUSCULAR HEMOGLOBIN 33.6 pg (27.0-33.0); MEAN CORPUSCULAR HGB CONC 34.8 g/dL (32.0-36.0); MEAN CORPUSCULAR VOLUME 96.4 fL (79-99); MONOCYTES % (AUTO) 12.7 % (3.0-13.0); NEUTROPHILS % (AUTO) 68.6 % (40.0-77.0); PLATELET COUNT (AUTO) 211 K/uL (130-400); RED BLOOD CELL COUNT(AUTO) 2.74 MIL/uL (4.50-6.20); RED CELL DISTRIBUTION WIDTH 15.2 % (11.0-15.5); WHITE BLOOD COUNT (AUTO) 19.3 K/uL (4.8-10.8)
[2020-08-27 05:25] LABS: CREATININE 1.1 mg/dL (0.5-1.5); POTASSIUM 3.5 mmol/L (3.5-5.1)
[2020-08-27] MEDS: KCL 20 MEQ ERTAB PO PRN ×2 (05:31→09:26)
[2020-08-27 07:45] VITALS: BP 118/59
[2020-08-27] MEDS: FAMOTIDINE 20MG TAB PO SCH (09:13)
[2020-08-27] MEDS ORDERED: RIFAXIMIN 550 MG TABLET PO SCH ×2 (10:30→21:00)
[2020-08-27] MEDS ORDERED: CEFTRIAXONE 1G VIAL IV SCH (10:30)
[2020-08-27] MEDS ORDERED: ALBUTEROL INHALER 90MCG/INH IH PRN (10:30)
[2020-08-27 11:46] VITALS: BP 116/62
[2020-08-27] MEDS ORDERED: FURO40TA7 PO (12:56)
[2020-08-27] MEDS ORDERED: SPIR25TA PO (12:56)
[2020-08-27] MEDS ORDERED: RIFAXIMIN 550 MG TABLET ONE (14:01)
[2020-08-27] MEDS ORDERED: FUROSEMIDE 40 MG TABLET PO SCH (17:00)
[2020-08-28] MEDS ORDERED: SPIRONOLACTONE 25 MG TAB PO SCH (09:00)
[2020-09-22] MEDS ORDERED: FOLI1 PO (22:12)
[2020-09-22] MEDS ORDERED: FERS325 PO (22:12)
[2020-09-22] MEDS ORDERED: VITAMIN B12 PO (22:12)
[2020-10-25] MEDS ORDERED: bactrim PO (17:42)
== END 2020-08-27 17:30 | disposition home or self-care (01) | DRG 434 ==
LOC: EDH 08:06 → EDHIP 11:46 → OBSVTOIN 11:46 → 3BH 18:47
PROVIDERS: ADMIT Internal Medicine; ATTEND Internal Medicine
PROC: 0W9G3ZZ Drainage of Peritoneal Cavity, Percutaneous Approach (ICD-10-PCS; principal; 2020-08-26)
DX: K70.31 Alcoholic cirrhosis of liver with ascites (principal); E87.6 Hypokalemia; D64.9 Anemia, unspecified; D72.829 Elevated white blood cell count, unspecified; I10 Essential (primary) hypertension; Z87.891 Personal history of nicotine dependence; Z82.3 Family history of stroke; Z82.49 Family history of ischemic heart disease and other diseases of the circulatory system
CPT/HCPCS: 36415; 49083; 80048; 80053; 80305; 81003; 83690; 84300; 84484; 85025; 85610; 85730; 93005; 96365; C1729; G0378; J0696; J3490; J7040; P9046

== ENCOUNTER → 2020-08-30 | Outpatient (CLI) | payer OTHER ==
[~2020-08-30] MED LIST changes: -LACT PO; -LOSA50TA64 PO; +RIFA550T PO; +SPIR25TA PO; -SPIR50TA5 PO
[2020-08-30 16:24] LABS: BASOPHILS % (AUTO) 0.4 % (0.0-5.0); EOSINOPHILS % (AUTO) 1.4 % (0.0-8.0); HEMATOCRIT 25.8 % (42-54); LYMPHOCYTES % (AUTO) 16.5 % (21.0-51.0); MEAN CORPUSCULAR HEMOGLOBIN 33.6 pg (27.0-33.0); MEAN CORPUSCULAR HGB CONC 34.9 g/dL (32.0-36.0); MEAN CORPUSCULAR VOLUME 96.3 fL (79-99); NEUTROPHILS % (AUTO) 64.1 % (40.0-77.0); PLATELET COUNT (AUTO) 274 K/uL (130-400); RED BLOOD CELL COUNT(AUTO) 2.68 MIL/uL (4.50-6.20); RED CELL DISTRIBUTION WIDTH 15.4 % (11.0-15.5); WHITE BLOOD COUNT (AUTO) 23.2 K/uL (4.8-10.8)
[2020-08-30 16:42] LABS: BILIRUBIN,TOTAL 4.1 mg/dL (0.2-1.0); POTASSIUM 4.5 mmol/L (3.5-5.1); TOTAL PROTEIN, SERUM 5.8 g/dL (6.0-8.3)
[2020-08-30 16:51] LABS: INR 1.41 (0.85-1.15); PARTIAL THROMBOPLASTIN TIME 28.6 SEC (26.3-35.5); PROTHROMBIN TIME 14.4 SEC (9.6-11.6)
== END | disposition home or self-care (01) ==
LOC: LAB 15:49
PROVIDERS: ATTEND Internal Medicine Gastroenterology
DX: K70.31 Alcoholic cirrhosis of liver with ascites (principal)
CPT/HCPCS: 36415; 80053; 82105; 85025; 85610; 85730

== ENCOUNTER → 2020-09-03 | Outpatient (CLI) | payer OTHER ==
[~2020-09-03] MED LIST changes: +ALBUMIN (HUMAN) 25% 200 ML IV SCH
[2020-09-03 12:39] LABS: APPEARANCE BODY FLUID CLEAR (CLEAR); COLOR,BODY FLUID YELLOW (LT YELLOW); SPECIMENTYPE,BODY FLUID ASCITES; TOTAL VOLUME,BODY FLUID 7700 mL
[2020-09-03 12:40] LABS: BODY FLUID RBC 67 /cu. mm.; BODY FLUID WBC 66 /cu. mm.
[2020-09-03 12:59] LABS: BF LYMPHOCYTE 17 %; BF MESOTHELIAL 60 %; BF MONOCYTE 17 %
== END | disposition home or self-care (01) ==
LOC: RAH 08:10
PROVIDERS: ATTEND Internal Medicine Gastroenterology
DX: K70.31 Alcoholic cirrhosis of liver with ascites (principal)
CPT/HCPCS: 49083; 87071; 87205; 89051; A4215; P9046; 96365

== ENCOUNTER → 2020-09-09 | Outpatient (CLI) | payer OTHER ==
[2020-09-09 16:00] LABS: APPEARANCE BODY FLUID SLIGHTLY CLOUDY (CLEAR); COLOR,BODY FLUID YELLOW (LT YELLOW); SPECIMENTYPE,BODY FLUID ASCITES; TOTAL VOLUME,BODY FLUID 9300 mL
[2020-09-09 16:01] LABS: BODY FLUID RBC 34 /cu. mm.; BODY FLUID WBC 50 /cu. mm.
[2020-09-09 16:06] LABS: BF LYMPHOCYTE 37 %; BF MESOTHELIAL 42 %
== END | disposition home or self-care (01) ==
LOC: RAH 09:07
PROVIDERS: ATTEND Internal Medicine Gastroenterology
DX: K70.31 Alcoholic cirrhosis of liver with ascites (principal); K72.90 Hepatic failure, unspecified without coma; I10 Essential (primary) hypertension; E78.5 Hyperlipidemia, unspecified; F17.210 Nicotine dependence, cigarettes, uncomplicated; D72.89 Other specified disorders of white blood cells; Z79.899 Other long term (current) drug therapy
CPT/HCPCS: 49083; 87071; 87205; 89051; A4215; P9046; 96365

== ENCOUNTER → 2020-09-17 | Outpatient (CLI) | payer OTHER ==
[~2020-09-17] MED LIST changes: +DiphenhydrAMINE HCL 50 MG/ML VIAL ONE; +FERS325 PO; +FOLI1 PO; +VITAMIN B12 PO
[2020-09-17 13:08] LABS: APPEARANCE BODY FLUID CLEAR (CLEAR); COLOR,BODY FLUID YELLOW (LT YELLOW); SPECIMENTYPE,BODY FLUID ASCITES; TOTAL VOLUME,BODY FLUID 8000 mL
[2020-09-17 13:14] LABS: BF LYMPHOCYTE 41 %; BF MESOTHELIAL 28 %; BF MONOCYTE 16 %; BODY FLUID RBC 97 /cu. mm.; BODY FLUID WBC 79 /cu. mm.
== END ==
LOC: RAH 09:43
PROVIDERS: ATTEND Internal Medicine Gastroenterology
DX: R18.8 Other ascites (principal)
CPT/HCPCS: 49083; 87071; 87205; 89051; A4215; J1200; P9046; 96365

== ENCOUNTER 2020-09-29 08:51 | Emergency (ER) | payer OTHER ==
[~2020-09-29 08:51] MED LIST changes: -ALBUMIN (HUMAN) 25% 200 ML IV SCH; -DiphenhydrAMINE HCL 50 MG/ML VIAL ONE; -FURO40TA7 PO; -SPIR25TA PO
[2020-09-29 09:33] LABS: BASOPHILS % (AUTO) 0.6 % (0.0-5.0); EOSINOPHILS % (AUTO) 3.6 % (0.0-8.0); LYMPHOCYTES % (AUTO) 15.4 % (21.0-51.0); MEAN CORPUSCULAR HEMOGLOBIN 32.6 pg (27.0-33.0); MONOCYTES % (AUTO) 12.6 % (3.0-13.0); NEUTROPHILS % (AUTO) 64.9 % (40.0-77.0); PLATELET COUNT (AUTO) 219 K/uL (130-400); RED BLOOD CELL COUNT(AUTO) 2.58 MIL/uL (4.50-6.20); RED CELL DISTRIBUTION WIDTH 16.4 % (11.0-15.5); WHITE BLOOD COUNT (AUTO) 13.8 K/uL (4.8-10.8)
[2020-09-29 09:45] LABS: CREATININE 0.9 mg/dL (0.5-1.5); POTASSIUM 3.6 mmol/L (3.5-5.1)
[2020-09-29 09:47] LABS: INR 1.27 (0.85-1.15); PROTHROMBIN TIME 13.5 SEC (9.6-11.6)
[2020-09-29 09:48] LABS: PARTIAL THROMBOPLASTIN TIME 30.3 SEC (26.3-35.5)
[2020-09-29 09:50] LABS: ALBUMIN 3.2 g/dL (3.5-5.0); BILIRUBIN,TOTAL 3.2 mg/dL (0.2-1.0); TOTAL PROTEIN, SERUM 5.9 g/dL (6.0-8.3)
[2020-09-29] MEDS ORDERED: ALBUMIN (HUMAN) 25% 200 ML IV ONE (11:01)
[2020-09-29] MEDS ORDERED: DiphenhydrAMINE HCL 50 MG/ML VIAL ONE (11:01)
== END 2020-09-29 13:02 | disposition home or self-care (01) ==
LOC: EDH 08:51
DX: R18.8 Other ascites (principal); K74.60 Unspecified cirrhosis of liver; E87.1 Hypo-osmolality and hyponatremia; F10.10 Alcohol abuse, uncomplicated; F43.10 Post-traumatic stress disorder, unspecified; Z72.0 Tobacco use
CPT/HCPCS: 36415; 49083; 80053; 85025; 85610; 85730; 96365; 99285; A4215; J1200; P9046

== ENCOUNTER → 2020-10-07 | Outpatient (CLI) | payer OTHER ==
[2020-10-07 11:00] LABS: BASOPHILS % (AUTO) 0.5 % (0.0-5.0); EOSINOPHILS % (AUTO) 3.3 % (0.0-8.0); HEMATOCRIT 23.4 % (42-54); LYMPHOCYTES % (AUTO) 13.9 % (21.0-51.0); MEAN CORPUSCULAR HEMOGLOBIN 32.8 pg (27.0-33.0); MEAN CORPUSCULAR VOLUME 93.6 fL (79-99); MONOCYTES % (AUTO) 14.8 % (3.0-13.0); NEUTROPHILS % (AUTO) 65.8 % (40.0-77.0); PLATELET COUNT (AUTO) 222 K/uL (130-400); RED CELL DISTRIBUTION WIDTH 16.4 % (11.0-15.5); WHITE BLOOD COUNT (AUTO) 12.9 K/uL (4.8-10.8)
[2020-10-07 11:24] LABS: % IRON SATURATION 21.5 % (30-44)
[2020-10-07 11:27] LABS: ALBUMIN 3.5 g/dL (3.5-5.0); CREATININE 0.9 mg/dL (0.5-1.5); TOTAL PROTEIN, SERUM 6.2 g/dL (6.0-8.3)
[2020-10-07 12:34] LABS: INR 1.23 (0.85-1.15); PROTHROMBIN TIME 13.2 SEC (9.6-11.6)
[2020-10-07 14:48] LABS: APPEARANCE BODY FLUID CLOUDY (CLEAR); COLOR,BODY FLUID YELLOW (LT YELLOW); SPECIMENTYPE,BODY FLUID ASCITES; TOTAL VOLUME,BODY FLUID 900 mL
[2020-10-07 14:49] LABS: BODY FLUID RBC 65 /cu. mm.; BODY FLUID WBC 22 /cu. mm.
[2020-10-07 15:08] LABS: BF LYMPHOCYTE 73 %; BF MESOTHELIAL 15 %; BF MONOCYTE 1 %
== END ==
LOC: RAH 10:09
PROVIDERS: ATTEND Internal Medicine Gastroenterology
DX: K70.31 Alcoholic cirrhosis of liver with ascites (principal)
CPT/HCPCS: 36415; 49083; 80053; 82728; 83540; 83550; 85025; 85610; 87071; 87205; 89051; A4215

== ENCOUNTER → 2020-10-14 | Outpatient (CLI) | payer OTHER ==
[2020-10-14 16:04] LABS: APPEARANCE BODY FLUID CLOUDY (CLEAR); COLOR,BODY FLUID LT YELLOW (LT YELLOW); SPECIMENTYPE,BODY FLUID ASCITES
[2020-10-14 16:05] LABS: BODY FLUID RBC 105 /cu. mm.; BODY FLUID WBC 19 /cu. mm.; TOTAL VOLUME,BODY FLUID 10600 mL
[2020-10-14 16:21] LABS: BF LYMPHOCYTE 16 %; BF MONOCYTE 9 %
== END | disposition home or self-care (01) ==
LOC: RAH 09:26
PROVIDERS: ATTEND Internal Medicine Gastroenterology
DX: K70.31 Alcoholic cirrhosis of liver with ascites (principal); E78.5 Hyperlipidemia, unspecified; F17.210 Nicotine dependence, cigarettes, uncomplicated; D64.9 Anemia, unspecified; I10 Essential (primary) hypertension; D72.89 Other specified disorders of white blood cells; K72.90 Hepatic failure, unspecified without coma; Z79.01 Long term (current) use of anticoagulants; Z79.899 Other long term (current) drug therapy; Z98.890 Other specified postprocedural states; Z90.89 Acquired absence of other organs
CPT/HCPCS: 49083; 87071; 87205; 89051; A4215

== ENCOUNTER → 2020-10-21 | Outpatient (CLI) | payer OTHER ==
[~2020-10-21] MED LIST changes: +bactrim PO
[2020-10-21 15:10] LABS: APPEARANCE BODY FLUID SLIGHTLY CLOUDY (CLEAR); BODY FLUID WBC 20 /cu. mm.; COLOR,BODY FLUID YELLOW (LT YELLOW); SPECIMENTYPE,BODY FLUID ASCITES; TOTAL VOLUME,BODY FLUID 9100 mL
[2020-10-21 15:11] LABS: BODY FLUID RBC 337 /cu. mm.
[2020-10-21 16:01] LABS: BF LYMPHOCYTE 45 %; BF MESOTHELIAL 34 %; BF MONOCYTE 2 %
== END | disposition home or self-care (01) ==
LOC: RAH 09:25
PROVIDERS: ATTEND Internal Medicine Gastroenterology
DX: K70.31 Alcoholic cirrhosis of liver with ascites (principal); I10 Essential (primary) hypertension; E78.5 Hyperlipidemia, unspecified; K72.90 Hepatic failure, unspecified without coma; D64.9 Anemia, unspecified; D72.89 Other specified disorders of white blood cells; Z90.89 Acquired absence of other organs; Z79.899 Other long term (current) drug therapy
CPT/HCPCS: 49083; 87071; 87205; 89051; A4215

== ENCOUNTER → 2020-10-28 | Outpatient (CLI) | payer OTHER ==
[2020-10-28 15:24] LABS: APPEARANCE BODY FLUID SLIGHTLY CLOUDY (CLEAR); BODY FLUID WBC 47 /cu. mm.; COLOR,BODY FLUID YELLOW (LT YELLOW); SPECIMENTYPE,BODY FLUID ASCITES; TOTAL VOLUME,BODY FLUID 9100 mL
[2020-10-28 15:25] LABS: BODY FLUID RBC 525 /cu. mm.
[2020-10-28 15:31] LABS: BF EOSINOPHIL 8 %; BF LYMPHOCYTE 35 %; BF MESOTHELIAL 5 %; BF OTHER CELLS 1
== END | disposition home or self-care (01) ==
LOC: RAH 09:50
PROVIDERS: ATTEND Internal Medicine Gastroenterology
DX: K70.31 Alcoholic cirrhosis of liver with ascites (principal)
CPT/HCPCS: 49083; 87071; 87205; 89051; A4215